=== PATIENT | male | born 1990 | race Caucasian/White ===

== ENCOUNTER → 2018-03-30 | Outpatient (CLI) | payer SELFPAY | LOC: M WUC 16:52 | DX: S20.211A Contusion of right front wall of thorax, initial encounter (principal); Y99.8 Other external cause status; Y92.89 Other specified places as the place of occurrence of the external cause; Y93.89 Activity, other specified; X58.XXXA Exposure to other specified factors, initial encounter | CPT/HCPCS: 71101 ==

== ENCOUNTER 2019-03-06 11:53 | Emergency (ER) | payer BC, SELFPAY ==
[~2019-03-06] VITALS: Ht 180.3 cm; Wt 84.1 kg
[2019-03-06 11:54] VITALS: BP 122/87
[2019-03-06] MEDS ORDERED: IBUP-1022 PO (12:34)
[2019-03-06] MEDS ORDERED: CYCL10TA PO (12:34)
== END 2019-03-06 12:59 | disposition home or self-care (01) ==
LOC: M ED 11:53
DX: M54.5 Low back pain (principal); Z87.891 Personal history of nicotine dependence